=== PATIENT | male | born 1975 | race Caucasian/White ===

== ENCOUNTER 2019-03-17 04:23 | Emergency (ER) | payer SELFPAY ==
[~2019-03-17] VITALS: Ht 177.8 cm; Wt 83.6 kg
[2019-03-17 04:28] VITALS: Ht 177.8 cm; Wt 83.6 kg
[2019-03-17 06:12] VITALS: BP 137/92
== END 2019-03-17 06:12 | disposition home or self-care (01) ==
LOC: ED 04:23
DX: H81.399 Other peripheral vertigo, unspecified ear (principal); I10 Essential (primary) hypertension
CPT/HCPCS: J8597

== ENCOUNTER 2020-05-10 14:37 | Emergency (ER) | payer OTHER ==
[~2020-05-10] VITALS: Ht 177.8 cm; Wt 77.1 kg
[2020-05-10 14:54] VITALS: Ht 177.8 cm; Wt 77.1 kg
[2020-05-10 16:08] LABS: BASOPHIL % 0.3 % (0-2); PLATELET COUNT 255 x10^3mcL (130-400); RED CELL DISTRIBUTION WIDTH 12.3 % (11.5-14.5)
[2020-05-10 16:19] LABS: CALCIUM 9.3 mg/dL (8.5-10.1); CARBON DIOXIDE 28.1 mmol/L (21-32); CHLORIDE SERUM 105 mmol/L (98-107); CREATININE SERUM 0.8 mg/dL (0.7-1.3); GFR1 > 60 mL/min; GLUCOSE SERUM 115 mg/dL (74-106); POTASSIUM SERUM 4.1 mmol/L (3.5-5.1); SODIUM SERUM 141 mmol/L (136-145)
[2020-05-10 16:24] LABS: ALBUMIN 4.4 g/dL (3.4-5.0); ALKALINE PHOSPHATASE 55 U/L (46-116); ALT/SGPT 34 U/L (16-63); AST/SGOT 14 U/L (15-37); BILIRUBIN TOTAL 0.38 mg/dL (0.20-1.00)
[2020-05-10 16:29] LABS: TOTAL PROTEIN, SERUM 8.7 g/dL (6.4-8.2)
[2020-05-10 17:30] VITALS: BP 139/90
== END 2020-05-10 17:30 | disposition home or self-care (01) ==
LOC: ED 14:37
PROVIDERS: Emergency Medicine
DX: K57.30 Diverticulosis of large intestine without perforation or abscess without bleeding (principal); N20.0 Calculus of kidney; I31.3 Pericardial effusion (noninflammatory)
CPT/HCPCS: J1885; J7030